=== PATIENT | female | born 1930 | race Caucasian/White ===

== ENCOUNTER 2017-01-16 08:57 | Emergency (ER) ==
[2017-01-16 09:28] LABS: ALLEN TEST NO; BE -2.5 mmoll (-3.0-3.0); BLOOD TYPE ARTERIAL; DRAW SITE R BRACHIAL; METHB 1.4 % (0.0-1.5); MODALITY ROOM AIR; PCO2(98.6) 39 mmHg (35-45); PO2(98.6) 76 mmHg (60-100); SAMPLE BLOOD; SAO2 95.8 % (95.0-100.0); THB 9.8 g/dL (11.5-17.4); pH(98.6) 7.37 (7.35-7.45)
--- NOTE | 2017-01-16 09:28 | PROVIDER DOCUMENTATION ---
HPI-Neurological Disorder - General Chief Complaint: Brain Attack Stated Complaint: generalized weakness Time Seen by Provider: 01/16/17 09:03 Source: EMS Allergies/Adverse Reactions: Patient Allergies Allergy/AdvReac Type Severity Reaction Status Date / Time No Known Allergies Allergy Verified 07/29/15 10:04 Home Medications: Home Medication List Medication Instructions Recorded Confirmed Last Taken Type Meloxicam [Mobic] 7.5 mg PO DAILY PRN #30 tablet 07/29/15 Unknown Rx Metoprolol [Lopressor] 12.5 mg PO BID #60 tablet 09/21/15 Unknown Rx - History of Present Illness-Neuro Nature of Presenting Problem: Presents to er with cc of brain attack. Sudden onset of left side weakness at 0755 this am while in bathroom. Family reports pt walked to bathroom with walker and then suddenly fell. Unwitnessed fall. EMS reports left sided upper arm weakness and left eye gaze. Hx of arthritis. Onset/Duration: reports: other (0755 am) Timing: reports: still present Character of Altered Mental Status: reports: N/A Any recent trauma/injury?: reports: none Character of Deficits: reports: new weakness New weakness or altered sensation location:: reports: LUE Cognitive Baseline: alert, oriented x3 Gait Baseline: uses a walker Similar Symptoms Previously?: No Recently seen or treated by another doctor?: No Review of Systems - Adult - REVIEW OF SYSTEMS - ADULT Constitutional: denies: chills, fever, fatique Eyes: reports: no symptoms reported Ears, Nose, Mouth & Throat: reports: no symptoms reported Cardiovascular: denies: chest pain, irregular heart rate, orthopnea Respiratory: reports: no symptoms reported Gastrointestinal: reports: no symptoms reported Genitourinary: reports: no symptoms reported Musculoskeletal: reports: no symptoms reported Integumentary: reports: no symptoms reported Neurological: reports: see HPI, other (left upper arm weakness). denies: seizure, syncope, tremors Psychiatric: reports: no symptoms reported Endocrine: reports: no symptoms reported Hematologic/Lymphatic: reports: no symptoms reported Allergic/Immunologic: reports: no symptoms reported All Other Systems: Reviewed and Negative Past History - Adult - PAST MEDICAL HISTORY-ADULT Review of Records: reports: Nursing Assessment Review, Medications Reviewed Major Childhood Illnesses: reports: denies history Cardiovascular: reports: HTN - PRIOR SURGERIES/PROCEDURES Surgical/Procedure History: reports: none - IMMUNIZATION STATUS Childhood Immunizations: See Nurse Assessment Flu Vaccine: See Nurse Assessment - SOCIAL HISTORY Smoking: denies Substance Use: none/never Physical Exam- Neurological - Physical Exam-Neuro Initial Vital Signs Reviewed: Yes General Appearance: appears well, alert, no apparent distress, thin Eye Exam: left eye: other (left eye gaze), bilateral eye: PERRL HENMT: moist mucous membranes, normal ENT inspection, TMs normal Head Injury: no evidence of injury Neck: full range of motion, supple, normal inspection Respiratory: chest non-tender, lungs clear, normal breath sounds, no pleuratic chest pain, no respiratory distress, no accessory muscle use Cardiovascular: regular rate, rhythm Abdominal Exam: non tender, soft, no organomegaly, no pulsatile mass Extremity: no pedal edema, inflammation (right knee), other (lue weakness) behavioral health consultant Exam: normal hearing, normal speech, PERRL, other (left eye gaze). negative : hearing deficit (R), hearing deficit (L), tongue deviation to R, tongue deviation to L Motor/Sensory: sensory deficit (left hand), weak motor strength LUE Neurologic: motor weakness, sensory deficit Integumentary: normal color, warm/dry Psych/Mental Status: normal mood/affect, normal thought content, normal thought process, oriented x 3 - Glascow Coma Scale Best Eye Response: (4) open spontaneously Best Verbal Response: (5) oriented Best Motor Response: (6) obeys commands Total Glascow Score: 15 Progress - PLAN OF CARE/RESULTS Progress/Plan/Lab Results: Orders Category Date Time Status Cardiac Monitoring DIRECTED Care 01/16/17 09:03 Active Finger Stick Blood Sugar (ED) DIRECTED Care 01/16/17 09:03 Active Saline Loc NOW Care 01/16/17 09:03 Active CHEST-PORTABLE [RAD] Stat Exams 01/16/17 09:04 Taken HEAD W/O CONTRAST [CT] Stat Exams 01/16/17 08:58 Ordered ABG [RESP] Routine Lab 01/16/17 09:03 Ordered ALCOHOL BLOOD Stat Lab 01/16/17 09:03 Uncollected BNP [PRO B-NATRIURETIC PEPTIDE] Stat Lab 01/16/17 09:06 Uncollected CBC WITH ELECTRONIC DIFF [HEME] Stat Lab 01/16/17 09:03 Uncollected CK PROFILE [SP CHEM] Stat Lab 01/16/17 09:03 Uncollected COMPREHENSIVE METABOLIC PANEL [CHEM] Stat Lab 01/16/17 09:03 Uncollected LACTATE, PLASMA [CHEM] Stat Lab 01/16/17 09:03 Uncollected PROTIME WITH INR [COAG] Stat Lab 01/16/17 09:03 Uncollected PTT [COAG] Stat Lab 01/16/17 09:03 Uncollected TROPONIN T Stat Lab 01/16/17 09:03 Uncollected URINALYSIS W/POSS RFLX CULT [URINALYSIS] Stat Lab 01/16/17 09:03 Uncollected Pulse Oximetry Stat Oth 01/16/17 09:03 Active EKG [EKG] Stat Ther 01/16/17 09:03 Ordered 0931 [place] [facility] paiged for consult with Vital Signs - 24 hr 01/16/17 09:25 Temperature 97.5 F L Pulse Rate 80 Respiratory 18 Rate Blood Pressure 181/90 O2 Sat by Pulse 100 Oximetry Laboratory Tests 01/16/17 09:25 Specimen Type ARTERIAL Sample Site R BRACHIAL pH 7.37 pCO2 39 pO2 76 HCO3 22.9 Base Excess -2.5 Oxyhemoglobin 93.7 L ABG O2 Sat (Calculated) 13.0 L ABG O2 Saturation 95.8 ABG Carboxyhemoglobin 0.80 ABG Methemoglobin 1.4 Adrian Test NO A-a O2 Difference 25.0 Total Hemoglobin 9.8 L Lactate 0.80 Blood Gas Modality ROOM AIR FiO2 % 21.0 0940 going to evaluate pt at bedside on Monitor wants pt sent to [place] [facility]. accepting - CT/MRI 1 CT Study: Head Impression: Abnormal (ischemic changes no blood no mass no hemm) - CONSULTS/PCP/HOSPITALIST Notification Time Discussed: 09:37 Departure - Departure Time of Disposition Order: 09:28 DIAGNOSIS: CVA (cerebral vascular accident) Qualifiers: CVA mechanism: unspecified Qualified Code(s): I63.9 - Cerebral infarction, unspecified Disposition: [facility] 02 Certified Medical Emergency: Emergent Condition: Stable - Critical Care Note Total Time (mins): 40 Critical Care Statement: This patient required my direct personal management to treat or rule out processes, the absence of which, could potentiallly result in sudden, clinically significant life or limb threatening deterioration. Attestation - Scribe Verification/Attestation Scribe:: Abhijit Wick Acting as Scribe for:: Ant Denton Scribe documention review:: This chart was documented by a scribe and accurately reflects the service the provider performed and the decisions made by the provider. Physician Attestation - Physician Attestation I, the provider, attest to the following statement:: Ant Denton Physician documentation Attestation:: This documentation recorded by the scribe accurately reflects the service I personally performed and the decisions made by me. - NIH Stroke Scale NIH Type: Initial Evaluation Level of Consciousness: 0-Alert LOC Questions (ask month and age): 0-Answers Both Correctly LOC Commands (ask to open & close eyes;make a fist, let go): 0-Obeys Both Correctly Best Gaze (horizontal eye movement): 1-Partial Gaze Palsy (gaze is abnormal in one or both eyes) Visual (use finger movement, counting or visual threat): 0-No Visual Loss Facial Palsy (show teeth or raise eyebrows & close eyes tght: 0-Symmetrical Movement Motor Function-left arm: 4-No Movement Motor Function-right arm: 0-Normal Motor Function-left le-Normal Motor Function-right le-Normal Limb Ataxia([id number], or heel to graves): 0-No Ataxia Sensory(pin prick to face,arms,trunk,legs-compare side/side): 2-Severe to Total Sensory Loss (in left arm below elbow) Best Language(name item/read sentence.Ex-Down to Earth): 0-No Aphasia Dysarthria(Pt read words or say words Ex.Mama,Tip-Top,Thanks: 0-Normal Articulation Extinction and Inattention: 1-Partial Neglect NIH Total Score: 8 Modified Delray Score Criteria: 2-slight disability
[2017-01-16] MEDS ORDERED: KEPPRA 1,000 MG in NS 100 ML IV ONE (09:49)
[2017-01-16 09:54] LABS: BASO% 0.2 % (0.0-0.8); EOS# 0.03 X1000 (0.0-0.7); EOS% 0.4 % (0.0-10.0); HEMATOCRIT 30.6 % (37.0-47.0); HEMOGLOBIN 9.6 g/dL (12.0-16.0); LYMPH# 1.52 X1000 (1.2-3.4); LYMPH% 18.8 % (20.5-51.1); MANUAL DIFF NEEDED? NO; MCH 23.2 PG (27-31); MCHC 31.4 g/dL (33-37); MCV 74.1 FL (81-99); MONO# 0.61 X1000 (0.11-0.59); MONO% 7.5 % (1.7-9.3); NEUT% 73.1 % (42.2-75.2); PLT 177 X1000 (130-400); RBC 4.13 XMIL (4.2-5.4)
[2017-01-16 10:06] LABS: INR 0.99; PROTIME 10.5 Seconds (9.2-11.7); PTT 28.2 Seconds (22.0-36.0)
--- NOTE | 2017-01-16 10:14 | Diag Imaging Result Document ---
PROCEDURE NAME: CHEST-PORTABLE - 01/16/2017 PORTABLE CHEST: COMPARISON: 06/29/2016. FINDINGS: The lungs are well expanded. Minimal increased markings in the left base. This may be due to fibrosis rather than an acute infiltrate. The vessels are not distended. Tiny left effusion versus pleural thickening. The heart is not enlarged considering the AP technique. IMPRESSION: Increased interstitial markings in the left base believed to be fibrosis. There is also a tiny effusion versus pleural thickening. [facility]
[2017-01-16 10:21] LABS: ALBUMIN 3.4 g/dL (3.5-5.0); CALCIUM 8.5 mg/dL (8.8-10.2); POTASSIUM 3.9 mmol/L (3.5-5.1); TOTAL BILIRUBIN 0.18 mg/dL (0.20-1.00); TOTAL PROTEIN 7.3 g/dL (6.3-8.3)
[2017-01-16 10:24] VITALS: BP 171/82
[2017-01-16 10:27] LABS: URINE CULTURE NEEDED? NO; URINE MICRO REVIEW NEEDED? NO; URINE SOURCE CATH
[2017-01-16 10:34] LABS: BILIRUBIN URINE NEGATIVE (NEGATIVE); BLOOD URINE TRACE (NEGATIVE); COLOR YELLOW; GLUCOSE URINE NEGATIVE (NEGATIVE); LEUKOCYTES URINE NEGATIVE (NEGATIVE); NITRITE URINE NEGATIVE (NEGATIVE); PROTEIN URINE 70 mg/dL (NEGATIVE); SP GRAVITY URINE 1.012; TURBIDITY URINE CLEAR (CLEAR); UROBILINOGEN URINE NORMAL (NORMAL)
[2017-01-16 10:35] LABS: UR EPITHELIAL CELLS <10 /HPF (<10); URINE BACTERIA NEGATIVE /HPF; URINE RBC <10 /HPF (<10); URINE WBC <10 /HPF (<10)
--- NOTE | 2017-01-17 07:25 | Diag Imaging Result Document ---
PROCEDURE NAME: HEAD W/O CONTRAST - 01/16/2017 CT BRAIN WITHOUT CONTRAST: COMPARISON: Compared to 09/21/20. TECHNIQUE: Dose-reduction protocol. FINDINGS: No parenchymal hemorrhage. No epidural or subdural hematoma. No subarachnoid hemorrhage. There are prominent microvascular ischemic changes with mild ventricular prominence. The appearance is fairly similar to that of the prior exam. 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 No sinus opacification. There is a small amount of mucus posteriorly in the left ethmoid sinus and inferiorly in each maxillary sinus. IMPRESSION: 1. No hemorrhage. 2. Atrophy with chronic microvascular ischemic changes. 3. Minimal sinusitis. A preliminary report was given to Dr. Denton in the emergency room at 9:25 a.m.
== END 2017-01-16 10:08 | disposition short-term general hospital (02) ==
LOC: EDBD → ED 08:57
DX: I63.9 Cerebral infarction, unspecified (principal); M62.81 Muscle weakness (generalized); I10 Essential (primary) hypertension; M19.90 Unspecified osteoarthritis, unspecified site; Z79.82 Long term (current) use of aspirin; Z79.899 Other long term (current) drug therapy; W19.XXXA Unspecified fall, initial encounter
CPT/HCPCS: 70450; 71010; 80053; 81001; 82550; 82805; 82948; 83880; 84484; 85025; 85610; 85730; 93005; G0480; J1953; 80320